=== PATIENT | female | born 1960 | race American Indian/Alaskan Native ===

== ENCOUNTER 2018-03-09 20:22 | Emergency (ER) | payer OTHER ==
[2018-03-09 20:36] VITALS: BP 137/67
--- NOTE | 2018-03-09 20:42 | EDM.PDOC ---
ED HPI GENERAL MEDICAL PROBLEM - General Chief Complaint: ENT Problem Stated Complaint: EAR AND THROAT PAIN Time Seen by Provider: 03/09/18 20:38 Source of Information: Reports: Patient History Limitations: Reports: No Limitations - History of Present Illness INITIAL COMMENTS - FREE TEXT/NARRATIVE: 57-year-old female presents to the ED with painful throat for the last day and a half. Hurts very badly to swallow with pain radiating up into her ears particularly on the left side. States the left ear pain is quite sharp and stabbing at times. Is like she swallowed a razor blades. Not sure if she is running a fever or not. Denies cough or sputum production. Onset: Sudden Onset Date: 03/08/18 Duration: Hour(s): (Essentially started yesterday morning) Location: Reports: Neck (Throat pain in her pain) Quality: Reports: Ache, Burning, Other Severity: Moderate (Sharp and stabbing to swallow) Improves with: Reports: None Worsens with: Reports: Eating, Other Context: Denies: Activity, Exercise, Lifting, Sick Contact, Trauma, Other Associated Symptoms: Reports: No Other Symptoms Treatments MEDICAL COMMUNICATION SPECIALIST: Reports: Other (see below) (None.) Left Ear Pain Score (Numeric/FACES): 5 - Related Data Allergies Allergy/AdvReac Type Severity Reaction Status Date / Time No Known Allergies Allergy Verified 03/09/18 20:36 Home Meds: Home Meds Levothyroxine 75 mcg PO DAILY 12/11/15 [History] metFORMIN HCl [Metformin HCl] 1,000 mg PO BID 12/11/15 [History] Insulin Aspart [NovoLOG] 15 unit SUBCUT TIDAC 01/25/16 [History] Insulin Glarg,Human.Rec.Analog [LantUS Solostar] 20 units SUBCUT BEDTIME [History] Cephalexin [Keflex] 500 mg PO Q8H #24 cap 03/09/18 [Rx] Past Medical History HEENT History: Reports: Allergic Rhinitis, Impaired Vision, Sinusitis Cardiovascular History: Reports: Hypertension [employer] History: Reports: Endocrine/Metabolic History: Reports: Diabetes, Type II (Controlled with insulin and diet and metformin.), Hypothyroidism - Past Surgical History GI Surgical History: Reports: Cholecystectomy Social & Family History - Family History Cardiac: Reports: [place] - Tobacco Use Smoking Status *Q: Never Smoker - Caffeine Use Caffeine Use: Reports: Coffee - Recreational Drug Use Recreational Drug Use: No - Living Situation & Occupation Living situation: Reports: with Family Occupation: Unemployed ED ROS ENT - Review of Systems Review Of Systems: See Below Constitutional: Reports: Fever, Decreased Appetite. Denies: Chills, Malaise, Weakness, Fatigue, Weight Loss HEENT: Reports: Ear Pain, Throat Pain (Bilaterally worse on the left as compared to the right. Her throat pain 2 days) Respiratory: Reports: No Symptoms Cardiovascular: Reports: No Symptoms Endocrine: Reports: Fatigue GI/Abdominal: Reports: No Symptoms : Reports: Frequency Musculoskeletal: Reports: No Symptoms Skin: Reports: No Symptoms Neurological: Reports: No Symptoms ED EXAM, ENT - Physical Exam Exam: See Below Exam Limited By: No Limitations General Appearance: Alert, WD/WN, No Apparent Distress, Other (Normal vital signs.) Eye Exam: Bilateral Eye: Normal Inspection Ears: Other (Both ears are within normal limits.) Mouth/Throat: Pharyngeal Erythema (Diffuse oropharyngeal erythema particularly on the left side. There is mild exudate on the left palatine fold.) Neck: Normal Inspection, Supple, Non-Tender, Lymphadenopathy (L), Lymphadenopathy (R) (Mild mild) Respiratory/Chest: No Respiratory Distress, Lungs Clear, Normal Breath Sounds, No Accessory Muscle Use, Chest Non-Tender Cardiovascular: Normal Peripheral Pulses, Regular Rate, Rhythm, No Edema, No Murmur Course - Vital Signs Last Recorded V/S: Last Vital Signs Temp 36.6 C 03/09/18 20:33 Pulse 82 03/09/18 20:33 Resp 18 03/09/18 20:33 BP 137/67 03/09/18 20:33 Pulse Ox 98 03/09/18 20:33 - Radiology Interpretation Free Text/Narrative:: 57-year-old female presents to the ED with throat pain 2 days with pain radiating up into both ears. Left is worse than the right. Examination ears to be normal. Oropharynx is markedly inflamed with a pharyngitis. There is exudate on the left palatine fold. There is mild cervical adenopathy bilaterally. She is insulin-dependent diabetic. Plan placed on cephalexin 500 mg 3 times a day for the next 8 days to clear up infection. Departure - Departure Time of Disposition: 20:38 Disposition: Home, Self-Care 01 Condition: Fair Clinical Impression: Pharyngitis Qualifiers: Pharyngitis/tonsillitis etiology: unspecified etiology Qualified Code(s): J02.9 - Acute pharyngitis, unspecified - Discharge Information Prescriptions: Cephalexin [Keflex] 500 mg PO Q8H #24 cap Referrals: PCP,Not In Area [Primary Care Provider] - Forms: ED Department Discharge Additional Instructions: Evaluation the emergency room today in regards to upper respiratory tract infection primarily that of throat infection. Examination shows quite marked redness of the back of your throat called pharyngitis. I think the pain is referred up interior left ear primarily as the ear itself does not show any active infection. Treatment is Motrin 600 mg every 6 hours as needed for relief of pain and/or fever. Antibiotic is to be cephalexin 500 mg 3 times daily for the next 8 days to clear up infection. Expect marked improvement over the next 48-72 hours.
== END 2018-03-09 21:04 | disposition home or self-care (01) ==
LOC: JD.ED 20:22
DX: J02.9 Acute pharyngitis, unspecified (principal); I10 Essential (primary) hypertension; E11.9 Type 2 diabetes mellitus without complications
CPT/HCPCS: 99283